=== PATIENT | female | born 1970 | race Two or more races ===

== ENCOUNTER 2023-04-15 10:25 | Outpatient (CLI) | payer OTHER | END 2023-04-15 10:31 | disposition home or self-care (01) | LOC: SONOGRAMA 10:25 | PROVIDERS: ATTEND Physical Medicine & Rehabilitation Pain Medicine | DX: M25.541 Pain in joints of right hand (principal); M25.542 Pain in joints of left hand ==

== ENCOUNTER 2023-04-19 15:01 | Emergency (ER) | payer OTHER ==
[~2023-04-19] VITALS: Ht 154.9 cm; Wt 65.3 kg
== END 2023-04-19 19:01 | disposition home or self-care (01) ==
LOC: ER 15:01
DX: F41.9 Anxiety disorder, unspecified (principal)

== ENCOUNTER 2023-04-21 11:10 | Outpatient (CLI) | payer OTHER | END 2023-04-21 11:21 | disposition home or self-care (01) | LOC: SONOGRAMA 11:10 | PROVIDERS: ATTEND Physical Medicine & Rehabilitation Pain Medicine | DX: M25.541 Pain in joints of right hand (principal); M25.542 Pain in joints of left hand ==

== ENCOUNTER 2024-02-08 12:31 | Outpatient (CLI) | payer OTHER | END 2024-02-08 12:38 | disposition home or self-care (01) | LOC: SONOGRAMA 12:31 | PROVIDERS: ATTEND Urology | DX: N20.0 Calculus of kidney (principal); N39.0 Urinary tract infection, site not specified ==

== ENCOUNTER 2024-04-27 13:08 | Outpatient (CLI) | payer OTHER | END 2024-04-27 13:17 | disposition home or self-care (01) | LOC: MAMO-SONO 13:08 | DX: N60.09 Solitary cyst of unspecified breast (principal); N63 Unspecified lump in breast; N64.4 Mastodynia ==

== ENCOUNTER 2024-12-09 13:32 | Outpatient (CLI) | payer OTHER | END 2024-12-09 13:45 | disposition home or self-care (01) | LOC: SONOGRAMA 13:32 | DX: M25.561 Pain in right knee (principal); M79.641 Pain in right hand; M25.531 Pain in right wrist ==

== ENCOUNTER 2025-04-11 10:00 | Outpatient (CLI) | payer OTHER | END 2025-04-11 10:03 | disposition home or self-care (01) | LOC: SONOGRAMA 10:00 | DX: M25.522 Pain in left elbow (principal); M25.521 Pain in right elbow ==

== ENCOUNTER 2025-05-04 11:50 | Outpatient (CLI) | payer OTHER | END 2025-05-04 11:52 | disposition home or self-care (01) | LOC: MAMO-SONO 11:50 | DX: N60.21 Fibroadenosis of right breast (principal); N60.22 Fibroadenosis of left breast; N64.89 Other specified disorders of breast ==